=== PATIENT | male | born 1955 | race Caucasian/White ===

== ENCOUNTER 2020-05-08 00:18 | Outpatient (CLI) | payer MEDICARE, OTHER, SELFPAY ==
[2020-05-08 19:00] LABS: SARS-CoV-2 RNA PCR Negative
== END 2020-05-08 00:19 | disposition home or self-care (01) ==
LOC: ANHCOVIDDT 00:18
PROVIDERS: PCP Internal Medicine; Visit Provider Urology
DX: Z01.812 Encounter for preprocedural laboratory examination (principal); Z20.828 Contact with and (suspected) exposure to other viral communicable diseases
CPT/HCPCS: 87635; C9803; U0003

== ENCOUNTER 2020-05-08 08:44 | Outpatient (CLI) | payer MEDICARE, OTHER, SELFPAY ==
--- NOTE | 2020-05-08 09:10 | ECG_ITS ---
Measurements Intervals [place] Rate: 69 P: 42 IA: 162 QRS: 32 QRSD: 105 T: 15 QT: 377 QTc: 407 Interpretive Statements SINUS RHYTHM NONSPECIFIC ST & T-WAVE ABNORMALITY- INFERIOR LEADS BASELINE ARTIFACT- I, II, AVL, AVF BORDERLINE ECG Electronically Signed On 05-08-2020 9:43:47 CDT by Jacobo Diaz D.O.
[2020-05-08 09:24] LABS: Anion Gap 11 mmol/L (8-16); Blood Urea Nitrogen 22 mg/dL (9-20); Calcium 9.6 mg/dL (8.4-10.2); Carbon Dioxide 25 mmol/L (22-30); Chloride 101 mmol/L (98-107); Estimated Glomerular Filt Rate > 60; Glucose 172 mg/dL (75-110); Potassium 4.1 mmol/L (3.4-5.0); Sodium 137 mmol/L (137-145)
== END 2020-05-08 08:45 | disposition home or self-care (01) ==
PROVIDERS: PCP Internal Medicine; Visit Provider Anesthesiology
DX: E11.9 Type 2 diabetes mellitus without complications (principal); I10 Essential (primary) hypertension
CPT/HCPCS: 36415; 80048; 87635; 93005; C9803; U0003

== ENCOUNTER 2020-05-10 00:21 | Day surgery (SDC) | payer MEDICARE, OTHER, SELFPAY ==
[2020-05-01 11:24] VITALS: BMI 48.7
--- NOTE | 2020-05-08 17:00 | PM.HPGS ---
History of Present Illness History of Present Illness Consent: Risks, benefits, and alternatives have been discussed and questions answered. Patient agrees to proceed with procedure. Chief complaint: Prostate Ca Narrative: Rodney Turner is a 65 year old male with clinically localize adenocarcinoma of prostate, scheduled for definitive pelvic IMRT. He's opted for placement of SpaceOAR to minimize risk of rectal irritation. His initial PSA was 3.8. He is a patient of Dr. Bhupinder Vallejo MD. Review of Systems Cardiovascular: Cardiovascular: Denies chest pain, Denies lightheadedness, Denies palpitations and Denies dyspnea Respiratory: Respiratory: Denies dyspnea Gastrointestinal: Gastrointestinal: Denies diarrhea, Denies nausea and Denies vomiting Genitourinary: Genitourinary: Denies hematuria and Denies dysuria Endocrine: Endocrine: Denies palpitations PMFSH Social History Social History Smoking status: Never smoker Spiritual care concerns: No Meds Home Medications and Allergies Home Medications Medication Instructions Recorded Confirmed Type Bentyl 10 mg PO QID PRN 05/01/20 05/01/20 History L.acid-L.casei-B.bif-B.mindy-FOS 1 cap PO DAILY 05/01/20 05/01/20 History [Probiotic Blend] albuterol sulfate [ProAir HFA] 1 puff INHALATION DIRECTED PRN 05/01/20 05/01/20 History amlodipine 5 mg PO DAILY 05/01/20 05/01/20 History aspirin 81 mg PO DAILY 05/01/20 05/01/20 History atorvastatin 40 mg PO DAILY 05/01/20 05/01/20 History fluticasone propion-salmeterol 2 puff INHALATION BID PRN 05/01/20 05/01/20 History [Advair HFA] fluticasone propionate 1 spray INTRANASAL BID PRN 05/01/20 05/01/20 History gabapentin 100 mg PO DAILY 05/01/20 05/01/20 History hydrochlorothiazide 12.5 mg PO DAILY 05/01/20 05/01/20 History insulin aspart U-100 [Novolog 26 unit SUBCUT TID 05/01/20 05/01/20 History Flexpen U-100 Insulin] insulin glargine [Lantus Solostar 54 unit SUBCUT BID 05/01/20 05/01/20 History U-100 Insulin] lisinopril 40 mg PO DAILY 05/01/20 05/01/20 History metformin 1,000 mg PO BID 05/01/20 05/01/20 History montelukast 10 mg PO HS 05/01/20 05/01/20 History naproxen sodium [Aleve] 220 mg PO BID PRN 05/01/20 05/01/20 History naproxen-diphenhydramine [Aleve PM] 1 tablet PO HS 05/01/20 05/01/20 History pantoprazole 40 mg PO DAILY 05/01/20 05/01/20 History pioglitazone 45 mg PO DAILY 05/01/20 05/01/20 History potassium gluconate 595 mg PO DAILY 05/01/20 05/01/20 History Allergies Allergy/AdvReac Type Severity Reaction Status Date / Time No Known Allergies Allergy Verified 05/01/20 11:24 Assessment and Plan Assessment and plan (1) Prostate cancer: Code(s): C61 - Malignant neoplasm of prostate Status: Acute Assessment and Plan: Transrectal ultrasound with transperineal placement of SpaceOAR. Pt. aware of risks of this procedure including, but not limited to, rectal injury, urinary tract infection with possible sepsis or septic shock, hematuria and inability to deliver the SpaceOAR. He also aware there is no alternative procedure to accomplish the same ends at this time.
--- NOTE | 2020-05-10 06:55 | WPDHPUPDATE1 ---
History and Physical Update Update Date/Time: 05/10/20 06:55 History and Physical has been reviewed, including an updated exam of the patient. There are NO changes in the patient's condition. Risks, benefits, and alternatives have been discussed and questions answered. Patient agrees to proceed with procedure.
--- NOTE | 2020-05-10 11:50 | WPDANESEPPF ---
Anes - Initial Pre Proc Eval Procedure: Operation Date: 05/10/20 13:15 Proposed Procedures p Insertion SpaceOAR Hydrogel System - Mayo Salmon MD Date/Time: 05/10/20 11:50 Surgeon: Mayo Salmon MD Pre Op Diagnosis: Prostate Ca Patient Data Age: 65 Gender: M Height: 5 ft 9 in Weight: 149.69 kg Allergies Allergy/AdvReac Type Severity Reaction Status Date / Time No Known Allergies Allergy Verified 05/10/20 11:39 Home Medications Medication Instructions Recorded Confirmed Type Bentyl 10 mg PO QID PRN 05/01/20 05/10/20 History L.acid-L.casei-B.bif-B.mindy-FOS 1 cap PO DAILY 05/01/20 05/10/20 History [Probiotic Blend] albuterol sulfate [ProAir HFA] 1 puff INHALATION DIRECTED PRN 05/01/20 05/10/20 History amlodipine 5 mg PO DAILY 05/01/20 05/10/20 History aspirin 81 mg PO DAILY 05/01/20 05/10/20 History atorvastatin 40 mg PO DAILY 05/01/20 05/10/20 History fluticasone propion-salmeterol 2 puff INHALATION BID PRN 05/01/20 05/10/20 History [Advair HFA] fluticasone propionate 1 spray INTRANASAL BID PRN 05/01/20 05/10/20 History gabapentin 100 mg PO DAILY 05/01/20 05/10/20 History hydrochlorothiazide 12.5 mg PO DAILY 05/01/20 05/10/20 History insulin aspart U-100 [Novolog 26 unit SUBCUT TID 05/01/20 05/10/20 History Flexpen U-100 Insulin] insulin glargine [Lantus Solostar 54 unit SUBCUT BID 05/01/20 05/10/20 History U-100 Insulin] lisinopril 40 mg PO DAILY 05/01/20 05/10/20 History metformin 1,000 mg PO BID 05/01/20 05/10/20 History montelukast 10 mg PO HS 05/01/20 05/10/20 History naproxen sodium [Aleve] 220 mg PO BID PRN 05/01/20 05/10/20 History naproxen-diphenhydramine [Aleve PM] 1 tablet PO HS 05/01/20 05/10/20 History pantoprazole 40 mg PO DAILY 05/01/20 05/10/20 History pioglitazone 45 mg PO DAILY 05/01/20 05/10/20 History potassium gluconate 595 mg PO DAILY 05/01/20 05/10/20 History Patient hx anesthesia problems: none Family hx anesthesia problems: none PMFSH Past Medical History Medical History Asthma Diabetes JOSE MANUEL (obstructive sleep apnea) Prostate cancer Social History Social History Smoking status: Never smoker Spiritual care concerns: No Anes - Eval Final PreProcedure Day of Procedure 05/10/20 11:50 Patient weight: morbidly obese Heart: regular rate and rhythm Lungs: clear to auscultation Airway: Mallampati scale class III Neurological: alert and oriented Last oral intake: >/= 8 hours ASA classification: III Emergent: no Anesthetic plan: proceed Anesthesia type and monitoring: general LMA and standard monitoring Informed Consent: The patient's anesthetic plan and its attendant risks and benefits were discussed with the patient/family/POA. Questions were solicited and answers provided to the satisfaction of the patient/family/POA.
[2020-05-10 11:51] VITALS: BP 143/62; PULSE 71; RESP 18; TEMP 36.4; O2SAT 98
[2020-05-10] MEDS: LACTATED RINGERS 1,000 ML 30 ML IV CONT (12:07)
[2020-05-10 12:11] LABS: Glucose Point of Care 149 (65-105)
[2020-05-10] MEDS: ceFAZolin 3 GM/D5W 100 ML 100 ML IVPB (12:55)
[2020-05-10 13:25] VITALS: BP 141/68; PULSE 78; RESP 14; O2SAT 93
--- NOTE | 2020-05-10 13:26 | P.OP_ITS ---
Procedure Note - Detailed Date of procedure: 05/10/20 Pre-op diagnosis: Prostate Ca Post-op diagnosis: same Procedure performed: Placement of SpaceOAR Description of procedure: This patient has been diagnosed with prostate cancer. Patient has met with a radiation oncologist who has prescribed a course of radiation for treatment of the malignancy. Please refer to the Radiation Oncologist's note for radiation method, dose, number of fractions. After discussing with the radiation oncologist and the patient, it has been agreed upon to proceed with SpaceOAR placement. The purpose of SpaceOAR is to reduce rectal irradiation during radiation therapy by placing an absorbable polyethylene glycol (PEG) hydrogel (SpaceOAR) into perirectal fat space, thereby pushing the rectum away from the prostate. Prior to the procedure, a timeout was performed confirming the patient's identity and planned the procedure. Anesthesia was induced without complication. Antibiotics were administered prophylactically, and the patient completed an enema at home prior to the procedure. The patient was positioned in the dorsal lithotomy position. A transrectal ultrasound probe was inserted per rectum with clear visualization of the prostatic base and apex. SpaceOAR hydrogel was prepared as described in the sales engineering manager?s 'Instructions For Use'. Under transrectal ultrasound guidance, a 15 cm 18G needle was inserted, transperineal, through the rectourethralis muscle and the needle tip advanced into the perirectal fat posterior to the prostate. The needle position, and downward bevel, were confirmed in both sagittal and axial shirley. 3-5cc of Sterile Saline was used to hydro-dissect the space between the Denonvilliers? fascia and anterior rectal wall. Aspiration did not yield any bleeding. With the needle tip at mid gland, the axial field was viewed to confirm the needle was not in the rectal wall -- movement of the needle tip without corresponding movement of the rectal wall confirmed perirectal placement. The assembled SpaceOAR delivery system was then attached to the 18G needle. Under ultrasound guidance in the sagittal plane, a smooth, continuous injection technique was used to dispense all 10cc of the SpaceOAR hydrogel into the space between the prostate and rectum. Optimal visualization of the needle during hydrogel administration was maintained at all times. An axial measurement of the space between the prostate (mid gland) and rectum immediately post-SpaceOAR injection was noted and measured [87mm]. No suspected penetration or compromise of the rectal wall occurred. Anesthesia: MAC Surgeon: Mayo Salmon MD Estimated blood loss (mL): 0 Drains: No Packing: No Pathology: none sent Complications: No immediate complications Condition: stable Disposition: PACU
[2020-05-10 13:40] VITALS: BP 153/77; PULSE 69; RESP 20
--- NOTE | 2020-05-10 13:57 | SUR.PHASEII ---
REPORT GIVEN TO VICKIE CHARLES RN
[2020-05-10 14:02] LABS: Glucose Point of Care 160 (65-105)
[2020-05-10 14:10] VITALS: BP 147/71; PULSE 72; RESP 20
== END 2020-05-10 14:35 | disposition home or self-care (01) ==
PROVIDERS: PCP Internal Medicine; Visit Provider Urology
PROC: (CPT 55874; principal; 2020-05-10 13:15)
DX: C61 Malignant neoplasm of prostate (principal); J45.909 Unspecified asthma, uncomplicated; E11.9 Type 2 diabetes mellitus without complications; G47.33 Obstructive sleep apnea (adult) (pediatric); Z79.82 Long term (current) use of aspirin; Z79.4 Long term (current) use of insulin; Z79.84 Long term (current) use of oral hypoglycemic drugs; E66.01 Morbid (severe) obesity due to excess calories; Z68.42 Body mass index [BMI] 45.0-49.9, adult
CPT/HCPCS: 55874; A9270; C1889; J0690; J2250; J2405; J2704; J3010; J7120